=== PATIENT | female | born 1965 | race Caucasian/White ===

== ENCOUNTER 2023-07-24 08:11 | Outpatient (OUT) | payer BC, OTHER, SELFPAY ==
--- NOTE | 2023-07-24 09:39 | MR_ITS ---
The [address] [address] Patient Name: MORRIS ANTONIO MRN: [id number] date: 1965 Sex: F Assigned Patient Location: MRI Current Patient Location: MRI Accession/Order Number: [id number] Exam Date: 07/24/2023 09:50 Report Date: 07/24/2023 10:50 At the request of: JASKARAN FREY Procedure: MR head/brain wo con MR head/brain wo con, 07/24/2023 9:50 AM EDT INDICATION: migraine G43.909, Dizziness R42, abnormal mri head COMPARISON: Prior CT of the head dated 12/24/2021 and MRI of brain dated 12/11/2018 TECHNIQUE: Multiplanar, multisequential MRI images of brain were obtained without injection of contrast. FINDINGS: The cerebral sulci as well as ventricular system are appropriate for age. There is no restricted diffusion. Hyperintensities on T2 and FLAIR images in the oleary radiata and centrum semiovale with sparing of U fibers are nonspecific, statistically most likely consistent with minimal microvascular ischemic changes or migraine. There is no intracranial mass, mass effect, midline shift, intra or extra-axial fluid collection or large hemorrhage. Normal flow-void in the intracranial vessels is noted. The visualized portions of orbits, mastoid air cells as well as paranasal sinuses are unremarkable. MR/MR head/brain wo con IMPRESSION: No acute intracranial process is noted. Electronically authenticated by: ODALIS JAUREGUI Date: 07/24/2023 10:50
== END 2023-07-24 08:12 | disposition home or self-care (01) ==
LOC: MRI 08:16
PROVIDERS: PCP Nurse Practitioner
DX: G43.909 Migraine, unspecified, not intractable, without status migrainosus (principal); R42 Dizziness and giddiness; R93.0 Abnormal findings on diagnostic imaging of skull and head, not elsewhere classified
CPT/HCPCS: 70551

== ENCOUNTER 2024-08-12 22:02 | Outpatient (REF) | payer OTHER, SELFPAY ==
[2024-08-15 14:10] LABS: Age Gdln ACOG Testing Note (.); HPV Aptima Negative (Negative); IGP, Aptima HPV, rfx 16/18,45 Note (.)
== END 2024-08-12 22:03 | disposition home or self-care (01) ==
LOC: LAB 22:02
PROVIDERS: PCP Nurse Practitioner; Visit Provider Nurse Practitioner
DX: Z01.419 Encounter for gynecological examination (general) (routine) without abnormal findings (principal)
CPT/HCPCS: 87624; 88175